=== PATIENT | female | born 1955 | race Caucasian/White ===

== ENCOUNTER → 2016-06-18 | Outpatient (CLI) | payer OTHER ==
--- NOTE | 2016-06-18 17:59 | XR ---
EXAMINATION TYPE: XR hand complete LT DATE OF EXAM: 06/18/2016 5:05 PM COMPARISON: NONE HISTORY: Jammed left thumb TECHNIQUE: 3 views FINDINGS: There is mild spurring at the IP joint of the left thumb. I see no fracture nor dislocation . IMPRESSION: Mild spurring. Otherwise negative exam. No fracture seen.
== END | disposition home or self-care (01) ==
LOC: RADXRMAIN 16:45
PROVIDERS: ATTEND Nurse Practitioner Family
DX: S69.92XA Unspecified injury of left wrist, hand and finger(s), initial encounter (principal); M77.8 Other enthesopathies, not elsewhere classified

== ENCOUNTER → 2016-06-21 | Outpatient (CLI) | payer OTHER ==
--- NOTE | 2016-06-22 07:11 | MM ---
Reason for exam: follow-up at short interval from prior study. Last mammogram was performed 6 months ago. History: Patient is postmenopausal. Physical Findings: Nurse did not find any significant physical abnormalities on exam. MG Diagnostic Mammo LT w CAD CC and MLO view(s) were taken of the left breast. Prior study comparison: December 19, 2015, left breast MG work up mamm w CAD LT. December 14, 2015, bilateral MG screening mammo w CAD. There are scattered fibroglandular densities. There is no discrete abnormality. ASSESSMENT: Negative, BI-RAD 1 RECOMMENDATION: Return to routine screening mammogram schedule for both breasts. Back on schedule.
== END | disposition home or self-care (01) ==
LOC: RADMAMWWP 14:51
PROVIDERS: ATTEND Family Medicine
DX: R92.8 Other abnormal and inconclusive findings on diagnostic imaging of breast (principal)

== ENCOUNTER 2016-10-18 10:41 | Day surgery (SDC) | payer OTHER ==
[2016-10-16 18:08] VITALS: BMI 28.3
[~2016-10-18 10:41] MED LIST: LACTATED RINGERS 1,000 ML IV SCH
[2016-10-18 11:03] VITALS: RESP 16; TEMP 98.7
[2016-10-18] MEDS ORDERED: LIDOCAINE 1% 20 ML VIAL (10MG/ML) FOR IV START INTRADERMA ONE (11:06)
[2016-10-18] MEDS ORDERED: PROPOFOL 10 MG/ML 20 ML VIAL IV ONE (12:17)
--- NOTE | 2016-10-18 12:38 | P.PCN ---
Date of Procedure: 10/18/16 Preoperative Diagnosis: Postoperative Diagnosis: Procedure(s) Performed: PROCEDURE: Colonoscopy. PREOPERATIVE DIAGNOSIS: Screening for history of polyps. POSTOPERATIVE DIAGNOSIS: Sigmoid diverticulosis with no evidence of acute diverticulitis, strictures, polyps or cancer. Preparation: HalfLytely prep. Sedation: Was provided by anesthesia. BRIEF CLINICAL HISTORY: The patient is a 61-year-old female who is scheduled for this evaluation because of history of polyps. She has no bowel complaints of bleeding or anemia. PROCEDURE: With the patient on her left lateral decubitus position and after informed consent and adequate sedation, the perianal area was inspected and did not show any fissures or fistulas. There were no masses felt on digital rectal examination. The Olympus CFQ 160L video colonoscope was then inserted in the rectum in the usual fashion and advanced to the cecum. There were several diverticular orifices seen scattered in the sigmoid but it was no evidence of acute diverticulitis or strictures. No polyps or tumors were seen. I retroflexed the endoscope in the rectum then the endoscope was withdrawn. The patient tolerated the procedure well. PLAN: The patient was reassured. Discussed dietary measures. I suggested repeating this exam in 5 years. She will follow-up with you as planned. Implants: Indications for Procedure: Operative Findings: Description of Procedure:
[2016-10-18 12:56] VITALS: BP 131/79; PULSE 63
== END 2016-10-18 13:12 | disposition home or self-care (01) ==
LOC: ORWHC2ENDO 10:41
DX: Z12.11 Encounter for screening for malignant neoplasm of colon (principal); K57.30 Diverticulosis of large intestine without perforation or abscess without bleeding; Z86.010 Personal history of colon polyps; E78.5 Hyperlipidemia, unspecified; Z79.899 Other long term (current) drug therapy; Z79.82 Long term (current) use of aspirin
CPT/HCPCS: J2704; G0121; 45378

== ENCOUNTER → 2017-06-03 | Outpatient (CLI) | payer OTHER ==
--- NOTE | 2017-06-05 06:53 | MM ---
Reason for exam: screening (asymptomatic). Last mammogram was performed 11 months ago. History: Patient is postmenopausal. Physical Findings: A clinical breast exam by your physician is recommended on an annual basis and results should be correlated with mammographic findings. MG Screening Mammo w CAD Bilateral CC and MLO view(s) were taken. Prior study comparison: June 21, 2016, left breast MG diagnostic mammo LT w CAD. December 19, 2015, left breast MG work up mamm w CAD LT. December 14, 2015, bilateral MG screening mammo w CAD. June 24, 2012, bilateral digital screening mammo w/CAD. There are scattered fibroglandular densities. No suspicious abnormality. No significant changes when compared with prior studies. ASSESSMENT: Negative, BI-RAD 1 RECOMMENDATION: Routine screening mammogram of both breasts in 1 year.
== END | disposition home or self-care (01) ==
LOC: RADMAMWWP 16:44
PROVIDERS: ATTEND Family Medicine
DX: Z12.31 Encounter for screening mammogram for malignant neoplasm of breast (principal)
CPT/HCPCS: 77067

== ENCOUNTER 2017-09-20 10:26 | Emergency (ER) | payer OTHER ==
[2017-09-20] MEDS ORDERED: SODIUM CHLORIDE 0.9% 2,000 ML IV STA (10:53)
--- NOTE | 2017-09-20 10:53 | ED ---
Nausea/Vomiting/Diarrhea HPI - General Chief complaint: Nausea/Vomiting/Diarrhea Stated complaint: Vomiting,dehydration Time Seen by Provider: 09/20/17 10:41 Source: patient Mode of arrival: ambulatory Limitations: no limitations - History of Present Illness Initial comments: Patient states that she is having nausea and vomiting, diarrhea. She also has a bilateral throbbing headache. Her symptoms began yesterday, approximately a day and a half ago. Nothing makes her symptoms better or worse. She went to an urgent care. They felt she was dehydrated and sent her to the emergency department. Patient denies any chest pain, belly pain, back pain. She has no shortness of breath. She feels lightheaded, but has not passed out. She denies any neck pain or stiffness. She has no change in vision or hearing. She denies any recent illnesses or sick contacts. She is unaware of anything unusual that she might have drunk. She has no focal weakness or trouble walking. - Related Data Home Medications Medication Instructions Recorded Confirmed Atorvastatin [Lipitor] 80 mg PO HS 09/20/17 09/20/17 Allergies Allergy/AdvReac Type Severity Reaction Status Date / Time No Known Allergies Allergy Verified 09/20/17 10:34 Review of Systems ROS Statement: Those systems with pertinent positive or pertinent negative responses have been documented in the HPI. ROS Other: All systems not noted in ROS Statement are negative. Past Medical History Past Medical History: Hyperlipidemia Additional Past Medical History / Comment(s): hx colon polyps History of Any Multi-Drug Resistant Organisms: None Reported Past Surgical History: Tonsillectomy Additional Past Surgical History / Comment(s): colonoscopy Past Anesthesia/Blood Transfusion Reactions: No Reported Reaction Past Psychological History: No Psychological Hx Reported Smoking Status: Never smoker - Past Family History Mother Family Medical History: Cancer Sister(s) Family Medical History: Cancer General Exam Limitations: no limitations General appearance: alert, in no apparent distress Head exam: Present: atraumatic, normocephalic, normal inspection Eye exam: Present: normal appearance, PERRL, EOMI. Absent: scleral icterus, conjunctival injection, periorbital swelling ENT exam: Present: normal exam, mucous membranes moist Neck exam: Present: normal inspection. Absent: tenderness, meningismus, lymphadenopathy Respiratory exam: Present: normal lung sounds bilaterally. Absent: respiratory distress, wheezes, rales, rhonchi, stridor Cardiovascular Exam: Present: regular rate, normal rhythm, normal heart sounds. Absent: systolic murmur, diastolic murmur, rubs, gallop, clicks GI/Abdominal exam: Present: soft, normal bowel sounds. Absent: distended, tenderness, guarding, rebound, rigid Extremities exam: Present: normal inspection, full ROM, normal capillary refill. Absent: tenderness, pedal edema, joint swelling, calf tenderness Back exam: Present: normal inspection Neurological exam: Present: alert, oriented X3, CN II-XII intact Psychiatric exam: Present: normal affect, normal mood Skin exam: Present: warm, dry, intact, normal color. Absent: rash Course Vital Signs 09/20/17 09/20/17 09/20/17 10:27 11:19 13:25 Temperature 98.3 F Pulse Rate 69 63 65 Respiratory 17 20 16 Rate Blood Pressure 141/72 143/65 138/81 O2 Sat by Pulse 100 99 99 Oximetry Medical Decision Making - Medical Decision Making I reevaluated the patient. Her symptoms have all completely resolved. She is tolerating orotate. She is feeling better. There are no findings on physical exam. There is no evidence of any acute emergent condition. She is stable for discharge and outpatient follow-up. - Lab Data Result diagrams: 09/20/17 11:15 09/20/17 11:15 Lab Results 09/20/17 09/20/17 09/20/17 Range/Units 11:15 11:15 11:15 WBC 8.8 (3.8-10.6) k/uL RBC 4.85 (3.80-5.40) m/uL Hgb 14.2 (11.4-16.0) gm/dL Hct 42.6 (34.0-46.0) % MCV 87.8 (80.0-100.0) fL MCH 29.3 (25.0-35.0) pg MCHC 33.4 (31.0-37.0) g/dL RDW 12.9 (11.5-15.5) % Plt Count 309 (150-450) k/uL Neutrophils % 69 % Lymphocytes % 24 % Monocytes % 4 % Eosinophils % 2 % Basophils % 0 % Neutrophils # 6.1 (1.3-7.7) k/uL Lymphocytes # 2.1 (1.0-4.8) k/uL Monocytes # 0.4 (0-1.0) k/uL Eosinophils # 0.1 (0-0.7) k/uL Basophils # 0.0 (0-0.2) k/uL Sodium 144 (137-145) mmol/L Potassium 4.0 (3.5-5.1) mmol/L Chloride 104 (98-107) mmol/L Carbon Dioxide 25 (22-30) mmol/L Anion Gap 15 mmol/L BUN 18 H (7-17) mg/dL Creatinine 0.77 (0.52-1.04) mg/dL Est GFR (CKD-EPI)AfAm >90 (>60 ml/min/1.73 sqM) Est GFR (CKD-EPI)NonAf 83 (>60 ml/min/1.73 sqM) Glucose 104 H (74-99) mg/dL Calcium 10.0 (8.4-10.2) mg/dL Magnesium 2.1 (1.6-2.3) mg/dL Total Bilirubin 0.8 (0.2-1.3) mg/dL AST 23 (14-36) U/L ALT 35 (9-52) U/L Alkaline Phosphatase 94 (38-126) U/L Troponin I <0.012 (0.000-0.034) ng/mL Total Protein 7.4 (6.3-8.2) g/dL Albumin 4.7 (3.5-5.0) g/dL Lipase 55 (23-300) U/L Urine Color Urine Appearance (Clear) Urine pH (5.0-8.0) Ur Specific Christoval (1.001-1.035) Urine Protein (Negative) Urine Glucose (UA) (Negative) Urine Ketones (Negative) Urine Blood (Negative) Urine Nitrite (Negative) Urine Bilirubin (Negative) Urine Urobilinogen (<2.0) mg/dL Ur Leukocyte Esterase (Negative) 09/20/17 Range/Units 12:25 WBC (3.8-10.6) k/uL RBC (3.80-5.40) m/uL Hgb (11.4-16.0) gm/dL Hct (34.0-46.0) % MCV (80.0-100.0) fL MCH (25.0-35.0) pg MCHC (31.0-37.0) g/dL RDW (11.5-15.5) % Plt Count (150-450) k/uL Neutrophils % % Lymphocytes % % Monocytes % % Eosinophils % % Basophils % % Neutrophils # (1.3-7.7) k/uL Lymphocytes # (1.0-4.8) k/uL Monocytes # (0-1.0) k/uL Eosinophils # (0-0.7) k/uL Basophils # (0-0.2) k/uL Sodium (137-145) mmol/L Potassium (3.5-5.1) mmol/L Chloride (98-107) mmol/L Carbon Dioxide (22-30) mmol/L Anion Gap mmol/L BUN (7-17) mg/dL Creatinine (0.52-1.04) mg/dL Est GFR (CKD-EPI)AfAm (>60 ml/min/1.73 sqM) Est GFR (CKD-EPI)NonAf (>60 ml/min/1.73 sqM) Glucose (74-99) mg/dL Calcium (8.4-10.2) mg/dL Magnesium (1.6-2.3) mg/dL Total Bilirubin (0.2-1.3) mg/dL AST (14-36) U/L ALT (9-52) U/L Alkaline Phosphatase (38-126) U/L Troponin I (0.000-0.034) ng/mL Total Protein (6.3-8.2) g/dL Albumin (3.5-5.0) g/dL Lipase (23-300) U/L Urine Color Yellow Urine Appearance Clear (Clear) Urine pH 6.0 (5.0-8.0) Ur Specific Christoval 1.020 (1.001-1.035) Urine Protein Trace H (Negative) Urine Glucose (UA) Negative (Negative) Urine Ketones 2+ H (Negative) Urine Blood Negative (Negative) Urine Nitrite Negative (Negative) Urine Bilirubin Negative (Negative) Urine Urobilinogen <2.0 (<2.0) mg/dL Ur Leukocyte Esterase Negative (Negative) 09/20/17 11:12 Twelve-lead EKG shows ventricular rate 58 bpm, normal LA interval and QRS complexes, no ST elevation or depression, interpreted by me as sinus rhythm. Disposition Clinical Impression: Dehydration Disposition: HOME SELF-CARE Condition: Good Instructions: Acute Nausea and Vomiting (ED) Is patient prescribed a controlled substance at d/c from ED?: No Referrals: Kwais Barr DO [Primary Care Provider] - 1-2 days
[2017-09-20] MEDS ORDERED: BUTALB/APAP/CAFF 50-325-40MG TAB PO STA (10:54)
[2017-09-20] MEDS ORDERED: PROCHLORPERAZINE 10 MG TAB PO STA (10:54)
[2017-09-20 11:34] LABS: Basophils % (A) 0 %; Eosinophils # (A) 0.1 k/uL (0-0.7); Eosinophils % (A) 2 %; HCT 42.6 % (34.0-46.0); HGB 14.2 gm/dL (11.4-16.0); Lymphocytes # (A) 2.1 k/uL (1.0-4.8); Lymphocytes % (A) 24 %; MCH 29.3 pg (25.0-35.0); MCHC 33.4 g/dL (31.0-37.0); MCV 87.8 fL (80.0-100.0); Mean Platelet Volume 7.8; Monocytes # (A) 0.4 k/uL (0-1.0); Monocytes % (A) 4 %; Neutrophils # (A) 6.1 k/uL (1.3-7.7); Neutrophils % (A) 69 %; Platelet Count 309 k/uL (150-450); RBC 4.85 m/uL (3.80-5.40); RDW 12.9 % (11.5-15.5); WBC 8.8 k/uL (3.8-10.6)
[2017-09-20 11:45] LABS: ALT 35 U/L (9-52); AST 23 U/L (14-36); Albumin 4.7 g/dL (3.5-5.0); Alkaline Phosphatase 94 U/L (38-126); Anion Gap 15 mmol/L; Blood Urea Nitrogen 18 mg/dL (7-17); Carbon Dioxide 25 mmol/L (22-30); Chloride 104 mmol/L (98-107); Glucose 104 mg/dL (74-99); Lipase 55 U/L (23-300); Magnesium 2.1 mg/dL (1.6-2.3); Sodium 144 mmol/L (137-145); Total Bilirubin 0.8 mg/dL (0.2-1.3); Total Protein 7.4 g/dL (6.3-8.2)
[2017-09-20 12:49] LABS: Appearance,Urine Clear (Clear); Bilirubin,Urine Negative (Negative); Blood,Urine Negative (Negative); Color,Urine Yellow; Glucose,Urine (UA) Negative (Negative); Ketones,Urine 2+ (Negative); Leukocyte Esterase,Urine Negative (Negative); Nitrite,Urine Negative (Negative); Protein,Urine Trace (Negative); Urobilinogen,Urine <2.0 mg/dL (<2.0)
--- NOTE | 2017-09-20 13:24 | CT ---
EXAMINATION TYPE: CT brain wo con DATE OF EXAM: 09/20/2017 COMPARISON: NONE HISTORY: LARSEN, dizziness, nausea and vomiting CT DLP: 978.[address] of the head is obtained. The ventricles, basal cisterns and sulci overlying the conve xities are consistent with the patient's age. The calvarium is intact. No midline shift. Nonspecific low-attenuation within the white matter bilaterally. The seen with edward te microvascular ischemia or demyelinating process. IMPRESSION: 1. No evidence of acute hemorrhage or mass effect. Nonspecific white matter changes bilaterally. If s ymptoms persist or there is continued clinical concern for acute ischemia correlate with MRI.
[2017-09-20 13:25] VITALS: BP 138/81; PULSE 65; RESP 16
[2017-09-20 13:56] VITALS: TEMP 98.4
== END 2017-09-20 13:53 | disposition home or self-care (01) ==
LOC: EC 10:26
DX: E86.0 Dehydration (principal); R11.2 Nausea with vomiting, unspecified; R19.7 Diarrhea, unspecified; R51 Headache; E78.5 Hyperlipidemia, unspecified; Z79.899 Other long term (current) drug therapy
CPT/HCPCS: 36415; 93005; 80053; 83690; 83735; 84484; 85025; 81003; 70450; 99284; 96360; 96361; S0183

== ENCOUNTER → 2017-12-06 | Outpatient (CLI) | payer OTHER ==
--- NOTE | 2017-12-06 12:09 | CT ---
EXAMINATION TYPE: CT pelvis w con DATE OF EXAM: 12/06/2017 COMPARISON: None INDICATION: Pelvic pressure and pain,Low-grade squamous intraepithelial lesion DLP: 719 mGycm, Automated exposure control for dose reduction was used. CONTRAST: 100 mL of Isovue 300. Study performed with Oral Contrast TECHNIQUE: Axial images were obtained from above the iliac crests to the pubic rami in the axial plan e at 5 mm thick sections. Reconstructed images are reviewed on the computer in the coronal plane. FINDINGS: CT PELVIS: No suspicious adenopathy is identified. Loops of bowel within the abdomen and pelvis are normal. Fecal debris is within the colon. Scatte red diverticuli are within the sigmoid colon. There is some mild diffuse wall thickening within the s igmoid. Appendix: Normal as visualized. Urinary bladder: Normal. Some posterior inferior wall thickening is not entirely excluded. Genitourinary structures: Uterus is unremarkable. Adnexal regions are normal. Osseous structures: No suspicious lytic or sclerotic lesions. IMPRESSIONS: 1. There is some mild diffuse wall thickening within the sigmoid colon. Correlate for mild diverticu litis. 2. Some mild inferior posterior urinary bladder wall thickening is not excluded.
== END | disposition home or self-care (01) ==
LOC: RADCTMAIN 07:26
PROVIDERS: ATTEND Family Medicine
DX: R87.612 Low grade squamous intraepithelial lesion on cytologic smear of cervix (LGSIL) (principal)
CPT/HCPCS: 72193; Q9967

== ENCOUNTER 2018-02-12 23:34 | Emergency (ER) | payer OTHER ==
[2018-02-12 23:41] VITALS: TEMP 98.2
--- NOTE | 2018-02-13 00:28 | ED ---
Arrhythmia/Palpitations HPI - General Chief Complaint: Arrhythmia/Palpitations Stated Complaint: Racing heart, arm numbness Time Seen by Provider: 02/13/18 00:17 Source: patient Mode of arrival: ambulatory Limitations: no limitations - History of Present Illness Initial Comments: This patient is 62-year-old woman who presents to be evaluated for a couple of symptoms that came on tonight when she was going to bed. The patient states that when she was lying down she felt tight feeling in the trapezius and neck area on the left. She states that it was a kind of a tight feeling, and that when she would extend her neck it felt like the symptoms would go to her left arm. When she was lying down her heart started racing. When these came on together she felt she should be evaluated here. The patient states that the symptoms have all resolved now. Patient denies diaphoresis, dyspnea, nausea or vomiting, lightheadedness or syncope. She states she has had similar episodes of racing heart in the past, and she also thought she may have a pinched nerve in the neck relating to the neck symptoms. MD Complaint: "heart racing" Onset/Timin -: hour(s) Context: occurred during rest - Related Data Home Medications Medication Instructions Recorded Confirmed Atorvastatin [Lipitor] 80 mg PO HS 09/20/17 09/20/17 Allergies Allergy/AdvReac Type Severity Reaction Status Date / Time No Known Allergies Allergy Verified 02/12/18 23:41 Review of Systems ROS Statement: Those systems with pertinent positive or pertinent negative responses have been documented in the HPI. ROS Other: All systems not noted in ROS Statement are negative. Constitutional: Denies: fever, chills Respiratory: Denies: cough, dyspnea Cardiovascular: Reports: palpitations. Denies: chest pain, dyspnea on exertion , orthopnea, edema, syncope Gastrointestinal: Denies: abdominal pain, nausea, vomiting Genitourinary: Denies: dysuria, hematuria Musculoskeletal: Denies: back pain Skin: Denies: rash Neurological: Denies: headache, weakness, numbness, paresthesias Past Medical History Past Medical History: Hyperlipidemia Additional Past Medical History / Comment(s): hx colon polyps History of Any Multi-Drug Resistant Organisms: None Reported Past Surgical History: Tonsillectomy Additional Past Surgical History / Comment(s): colonoscopy Past Anesthesia/Blood Transfusion Reactions: No Reported Reaction Past Psychological History: No Psychological Hx Reported Smoking Status: Never smoker Past Alcohol Use History: Occasional Past Drug Use History: None Reported - Past Family History Mother Family Medical History: Cancer Sister(s) Family Medical History: Cancer General Exam Limitations: no limitations General appearance: alert, in no apparent distress Head exam: Present: atraumatic, normocephalic Eye exam: Present: normal appearance. Absent: scleral icterus, conjunctival injection ENT exam: Present: normal oropharynx Neck exam: Present: normal inspection, full ROM. Absent: tenderness Respiratory exam: Present: normal lung sounds bilaterally. Absent: respiratory distress, wheezes, rales, rhonchi, stridor Cardiovascular Exam: Present: regular rate, normal rhythm, normal heart sounds. Absent: systolic murmur, diastolic murmur, rubs, gallop GI/Abdominal exam: Present: soft. Absent: distended, tenderness, guarding, rebound, rigid, mass Extremities exam: Present: normal inspection, normal capillary refill. Absent: pedal edema, calf tenderness Back exam: Present: normal inspection, paraspinal tenderness ((Trapezius). Absent: CVA tenderness (R), CVA tenderness (L), vertebral tenderness Neurological exam: Present: alert Skin exam: Present: warm, dry, intact, normal color. Absent: rash Course Vital Signs 02/12/18 23:38 Temperature 98.2 F Pulse Rate 83 Respiratory 18 Rate Blood Pressure 141/82 O2 Sat by Pulse 98 Oximetry EKG Findings - EKG Results: EKG: interpreted by DIPTI, RONIL, sinus rhythm (Rate 66 bpm), normal axis, normal QRS, normal ST/T, no acute changes - CO, Pacemaker, Normal: Normal tracing: normal tracing Medical Decision Making - Lab Data Result diagrams: 02/12/18 23:52 02/12/18 23:52 Lab Results 02/12/18 02/12/18 02/12/18 Range/Units 23:52 23:52 23:52 WBC 10.2 (3.8-10.6) k/uL RBC 4.44 (3.80-5.40) m/uL Hgb 13.5 (11.4-16.0) gm/dL Hct 39.6 (34.0-46.0) % MCV 89.1 (80.0-100.0) fL MCH 30.5 (25.0-35.0) pg MCHC 34.2 (31.0-37.0) g/dL RDW 12.8 (11.5-15.5) % Plt Count 318 (150-450) k/uL Neutrophils % 64 % Lymphocytes % 27 % Monocytes % 4 % Eosinophils % 2 % Basophils % 1 % Neutrophils # 6.6 (1.3-7.7) k/uL Lymphocytes # 2.8 (1.0-4.8) k/uL Monocytes # 0.5 (0-1.0) k/uL Eosinophils # 0.2 (0-0.7) k/uL Basophils # 0.1 (0-0.2) k/uL PT (9.0-12.0) sec INR (<1.2) APTT (22.0-30.0) sec Sodium 140 (137-145) mmol/L Potassium 3.8 (3.5-5.1) mmol/L Chloride 108 H (98-107) mmol/L Carbon Dioxide 21 L (22-30) mmol/L Anion Gap 11 mmol/L BUN 15 (7-17) mg/dL Creatinine 0.66 (0.52-1.04) mg/dL Est GFR (CKD-EPI)AfAm >90 (>60 ml/min/1.73 sqM) Est GFR (CKD-EPI)NonAf >90 (>60 ml/min/1.73 sqM) Glucose 106 H (74-99) mg/dL Calcium 9.8 (8.4-10.2) mg/dL Magnesium 1.9 (1.6-2.3) mg/dL Total Bilirubin 0.5 (0.2-1.3) mg/dL AST 37 H (14-36) U/L ALT 31 (9-52) U/L Alkaline Phosphatase 82 (38-126) U/L Total Creatine Kinase 529 H (30-135) U/L CK-MB (CK-2) 3.9 H (0.0-2.4) ng/mL CK-MB (CK-2) Rel Index 0.7 Troponin I <0.012 (0.000-0.034) ng/mL Total Protein 7.1 (6.3-8.2) g/dL Albumin 4.3 (3.5-5.0) g/dL 02/12/18 Range/Units 23:52 WBC (3.8-10.6) k/uL RBC (3.80-5.40) m/uL Hgb (11.4-16.0) gm/dL Hct (34.0-46.0) % MCV (80.0-100.0) fL MCH (25.0-35.0) pg MCHC (31.0-37.0) g/dL RDW (11.5-15.5) % Plt Count (150-450) k/uL Neutrophils % % Lymphocytes % % Monocytes % % Eosinophils % % Basophils % % Neutrophils # (1.3-7.7) k/uL Lymphocytes # (1.0-4.8) k/uL Monocytes # (0-1.0) k/uL Eosinophils # (0-0.7) k/uL Basophils # (0-0.2) k/uL PT 9.8 (9.0-12.0) sec INR 1.0 (<1.2) APTT 24.2 (22.0-30.0) sec Sodium (137-145) mmol/L Potassium (3.5-5.1) mmol/L Chloride (98-107) mmol/L Carbon Dioxide (22-30) mmol/L Anion Gap mmol/L BUN (7-17) mg/dL Creatinine (0.52-1.04) mg/dL Est GFR (CKD-EPI)AfAm (>60 ml/min/1.73 sqM) Est GFR (CKD-EPI)NonAf (>60 ml/min/1.73 sqM) Glucose (74-99) mg/dL Calcium (8.4-10.2) mg/dL Magnesium (1.6-2.3) mg/dL Total Bilirubin (0.2-1.3) mg/dL AST (14-36) U/L ALT (9-52) U/L Alkaline Phosphatase (38-126) U/L Total Creatine Kinase (30-135) U/L CK-MB (CK-2) (0.0-2.4) ng/mL CK-MB (CK-2) Rel Index Troponin I (0.000-0.034) ng/mL Total Protein (6.3-8.2) g/dL Albumin (3.5-5.0) g/dL Disposition Clinical Impression: Palpitations Disposition: HOME SELF-CARE Condition: Good Instructions: Heart Palpitations (ED) Is patient prescribed a controlled substance at d/c from ED?: No Referrals: Kwasi Barr DO [Primary Care Provider] - 1-2 days
[2018-02-13 00:54] LABS: Basophils # (A) 0.1 k/uL (0-0.2); Basophils % (A) 1 %; Eosinophils # (A) 0.2 k/uL (0-0.7); Eosinophils % (A) 2 %; HCT 39.6 % (34.0-46.0); HGB 13.5 gm/dL (11.4-16.0); Lymphocytes # (A) 2.8 k/uL (1.0-4.8); Lymphocytes % (A) 27 %; MCH 30.5 pg (25.0-35.0); MCHC 34.2 g/dL (31.0-37.0); MCV 89.1 fL (80.0-100.0); Mean Platelet Volume 7.6; Monocytes # (A) 0.5 k/uL (0-1.0); Monocytes % (A) 4 %; Neutrophils # (A) 6.6 k/uL (1.3-7.7); Neutrophils % (A) 64 %; Platelet Count 318 k/uL (150-450); RBC 4.44 m/uL (3.80-5.40); RDW 12.8 % (11.5-15.5); WBC 10.2 k/uL (3.8-10.6)
--- NOTE | 2018-02-13 00:58 | XR ---
EXAMINATION TYPE: XR chest 1V portable DATE OF EXAM: 02/13/2018 COMPARISON: NONE HISTORY: Palpitations tachycardia TECHNIQUE: Single frontal view of the chest is obtained. FINDINGS: Heart and mediastinum are normal. Lungs are clear. Diaphragm is normal. Bony thorax appear s normal. IMPRESSION: Normal chest.
[2018-02-13 01:03] LABS: ALT 31 U/L (9-52); AST 37 U/L (14-36); Albumin 4.3 g/dL (3.5-5.0); Alkaline Phosphatase 82 U/L (38-126); Anion Gap 11 mmol/L; Blood Urea Nitrogen 15 mg/dL (7-17); Calcium 9.8 mg/dL (8.4-10.2); Carbon Dioxide 21 mmol/L (22-30); Chloride 108 mmol/L (98-107); Glucose 106 mg/dL (74-99); Magnesium 1.9 mg/dL (1.6-2.3); Potassium 3.8 mmol/L (3.5-5.1); Sodium 140 mmol/L (137-145); Total Bilirubin 0.5 mg/dL (0.2-1.3); Total Protein 7.1 g/dL (6.3-8.2)
[2018-02-13 01:12] LABS: Partial Thromboplastin Time 24.2 sec (22.0-30.0); Prothrombin Time 9.8 sec (9.0-12.0)
[2018-02-13 01:20] LABS: Creatine Kinase 529 U/L (30-135)
[2018-02-13 01:32] LABS: Creatine Kinase MB 3.9 ng/mL (0.0-2.4); Troponin I <0.012 ng/mL (0.000-0.034)
[2018-02-13 02:29] VITALS: BP 146/77; PULSE 63; RESP 16
== END 2018-02-13 02:29 | disposition home or self-care (01) ==
LOC: EC 23:34
DX: R00.2 Palpitations (principal); R20.0 Anesthesia of skin; E78.5 Hyperlipidemia, unspecified; Z79.899 Other long term (current) drug therapy
CPT/HCPCS: 36415; 71045; 80053; 82550; 82553; 83735; 84484; 85025; 85610; 85730; 93005; 99285

== ENCOUNTER → 2018-06-18 | Outpatient (CLI) | payer OTHER ==
--- NOTE | 2018-06-19 11:01 | MM ---
Reason for exam: screening (asymptomatic). Last mammogram was performed 1 year ago. History: Patient is postmenopausal. Physical Findings: A clinical breast exam by your physician is recommended on an annual basis and results should be correlated with mammographic findings. MG Screening Mammo w CAD Bilateral CC and MLO view(s) were taken. Prior study comparison: June 03, 2017, bilateral MG screening mammo w CAD. June 21, 2016, left breast MG diagnostic mammo LT w CAD. There are scattered fibroglandular densities. No significant changes when compared with prior studies. ASSESSMENT: Benign, BI-RAD 2 RECOMMENDATION: Routine screening mammogram of both breasts in 1 year.
== END | disposition home or self-care (01) ==
LOC: RADMAMWWP 14:59
PROVIDERS: ATTEND Family Medicine
DX: Z12.31 Encounter for screening mammogram for malignant neoplasm of breast (principal)
CPT/HCPCS: 77067

== ENCOUNTER → 2020-07-07 | Outpatient (CLI) | payer OTHER ==
--- NOTE | 2020-07-11 09:49 | MM ---
Reason for exam: screening (asymptomatic). Last mammogram was performed 2 years and 1 month ago. History: Patient is postmenopausal. Physical Findings: A clinical breast exam by your physician is recommended on an annual basis and results should be correlated with mammographic findings. MG Screening Mammo w CAD Bilateral CC, MLO, and XCCL view(s) were taken. Prior study comparison: June 18, 2018, bilateral MG screening mammo w CAD. June 03, 2017, bilateral MG screening mammo w CAD. There are scattered fibroglandular densities. No significant changes when compared with prior studies. ASSESSMENT: Benign, BI-RAD 2 RECOMMENDATION: Routine screening mammogram of both breasts in 1 year.
== END | disposition home or self-care (01) ==
LOC: RADMAMWWP 15:26
PROVIDERS: ATTEND Family Medicine
DX: Z12.31 Encounter for screening mammogram for malignant neoplasm of breast (principal)
CPT/HCPCS: 77067

== ENCOUNTER → 2020-11-28 | Outpatient (CLI) | payer OTHER | END | disposition home or self-care (01) | LOC: LABWHC1 07:30 | PROVIDERS: ATTEND Family Medicine | DX: E87.5 Hyperkalemia (principal) | CPT/HCPCS: 36415; 82024; 82533 ==

== ENCOUNTER → 2021-11-15 | Outpatient (CLI) | payer MEDICARE ==
--- NOTE | 2021-11-16 08:33 | XR ---
Limited cervical spine HISTORY: Radiculopathy 3 views of the cervical spine There is multilevel spondylosis, loss of disc height at intervertebral levels. Cervical vertebral bod ies show anatomic alignment. Bone mineralization is mildly reduced. There are facet arthropathy parr es. Prevertebral soft tissues are normal. Cervical vertebral bodies show preserved height. IMPRESSION: Degenerative disc disease and facet arthropathy.
== END | disposition home or self-care (01) ==
LOC: RADXRMAIN 16:30
PROVIDERS: ATTEND Family Medicine
DX: M50.10 Cervical disc disorder with radiculopathy, unspecified cervical region (principal); M47.22 Other spondylosis with radiculopathy, cervical region
CPT/HCPCS: 72040

== ENCOUNTER 2021-12-08 07:08 | Day surgery (SDC) | payer MEDICARE, OTHER ==
[2021-12-07 08:17] VITALS: BMI 29.0
[~2021-12-08 07:08] MED LIST changes: +LIDOCAINE 1% (10MG/ML) FOR IV START INTRADERMA PRN
[2021-12-08 07:30] VITALS: TEMP 97.2
[2021-12-08] MEDS ORDERED: PROPOFOL 10 MG/ML 20 ML VIAL IV ONE (07:54)
--- NOTE | 2021-12-08 08:11 | P.PCN ---
Date of Procedure: 12/08/21 Procedure(s) Performed: BRIEF HISTORY: Patient is a 66-year-old pleasant White female scheduled for an elective colonoscopy as a part of evaluation of prior history of colon polyps. Her last colonoscopy was 10 years ago. PROCEDURE PERFORMED: Colonoscopy. PREOPERATIVE DIAGNOSIS: History of colon polyps. IV sedation per Anesthesia. PROCEDURE: After informed consent was obtained, the patient, was brought into the endoscopy unit. IV sedation was administered by Anesthesia under continuous monitoring. Digital rectal examination was normal. Initially the Olympus CF-160 flexible video colonoscope was then inserted in the rectum, gradually advanced into the cecum without any difficulty. Careful examination was performed as the scope was gradually being withdrawn. Ileocecal valve and the appendiceal orifice were visualized and appeared normal. Prep was excellent. Mucosa of the cecum, ascending colon, transverse colon, descending colon, sigmoid colon, and rectum appeared normal. Retroflexion was performed in the rectum and no lesions were seen. Scattered sigmoid diverticulosis. The patient tolerated the procedure well. IMPRESSION: Normal-appearing colon from rectum to cecum with no evidence of colorectal neoplasia . Scattered sigmoid diverticulosis. RECOMMENDATIONS: Findings of this examination were discussed with the patient as well as her family. She was advised to have a repeat screening colonoscopy in 10 years from now..
[2021-12-08 08:32] VITALS: BP 127/77; PULSE 62; RESP 16
== END 2021-12-08 08:58 | disposition home or self-care (01) ==
LOC: ORWHC2ENDO 07:08
PROVIDERS: ATTEND Internal Medicine Gastroenterology
DX: Z12.11 Encounter for screening for malignant neoplasm of colon (principal); Z86.010 Personal history of colon polyps; K57.30 Diverticulosis of large intestine without perforation or abscess without bleeding; Z79.1 Long term (current) use of non-steroidal anti-inflammatories (NSAID); Z79.899 Other long term (current) drug therapy; E78.5 Hyperlipidemia, unspecified; K58.9 Irritable bowel syndrome, unspecified; Z98.890 Other specified postprocedural states
CPT/HCPCS: J2704; G0105; 45378

== ENCOUNTER → 2022-08-21 | Outpatient (CLI) | payer MEDICARE ==
--- NOTE | 2022-08-21 21:24 | XR ---
EXAMINATION TYPE: XR Hip Complete LT DATE OF EXAM: 08/21/2022 4:16 PM INDICATION: Patient age:Female; 67 years old; Reason for study: M25.552 M25.512; COMPARISON: CT pelvis 12/06/2017 TECHNIQUE: The left hip was examined in the frontal and lateral projections FINDINGS: No evidence for acute process, joint dislocation or significant soft tissue swelling. Osteo phyte formation of the superior acetabulum of the hips. IMPRESSION: 1. No evidence for acute process. 2. Mild hip osteoarthrosis.
--- NOTE | 2022-08-21 21:25 | XR ---
EXAMINATION TYPE: XR shoulder complete LT DATE OF EXAM: 08/21/2022 4:16 PM INDICATION: Patient age:Female; 67 years old; Reason for study: M25.552 M25.512; COMPARISON: None TECHNIQUE: The left shoulder was examined in AP, internally rotated and scapular Y projections. FINDINGS: No evidence of acute osseous pathology, joint dislocation, or soft tissue swelling. The remaining por tions of the visualized chest are unremarkable. Mild degeneration of the acromion and distal clavicle with osteophyte formation. IMPRESSION: 1. No acute osseous pathology. 2. Mild AC joint osteoarthrosis.
== END | disposition home or self-care (01) ==
LOC: RADXRMAIN 15:58
PROVIDERS: ATTEND Nurse Practitioner Family
DX: M16.12 Unilateral primary osteoarthritis, left hip (principal); M19.012 Primary osteoarthritis, left shoulder
CPT/HCPCS: 73502

== ENCOUNTER → 2022-10-31 | Outpatient (CLI) | payer MEDICARE ==
--- NOTE | 2022-11-01 20:22 | MM ---
Reason for Exam: Screening (asymptomatic). Last mammogram was performed 2 year(s) and 4 month(s) ago. Patient History: Menarche at age 17. First Full-Term at age 26. Postmenopausal. Patient has history of breast feeding. Risk Values: Linsey 5 year model risk: 1.7%. NCI Lifetime model risk: 5.9%. Prior Study Comparison: 06/03/2017 Bilateral Screening Mammogram, [facility]. 06/18/2018 Bilateral Screening Mammogram, [facility]. 07/07/2020 Bilateral Screening Mammogram, [facility]. Tissue Density: There are scattered fibroglandular densities. Findings: Analyzed By CAD. There is no suspicious group of microcalcifications or new suspicious mass in either breast. Overall Assessment: Negative, BI-RAD 1 Management: Screening Mammogram of both breasts in 1 year. . Patient should continue monthly self-breast exams. A clinical breast exam by your physician is recommended on an annual basis. This exam should not preclude additional follow-up of suspicious palpable abnormalities. Note on Linsey scores and lifetime risk: 1. A Linsey score greater than 3% is considered moderate risk. If this is the case, consider specialist referral to assess eligibility for a risk reducing agent. 2. If overall lifetime risk for the development of breast cancer is 20% or higher, the patient may qualify for future screening with alternating mammogram and breast MRI. Electronically signed and approved by: Jamil Munguia M.D. Radiologist
== END | disposition home or self-care (01) ==
LOC: RADMAMWWP 08:20
PROVIDERS: ATTEND Family Medicine
DX: Z12.31 Encounter for screening mammogram for malignant neoplasm of breast (principal); Z78.0 Asymptomatic menopausal state
CPT/HCPCS: 77067

== ENCOUNTER 2022-12-17 02:20 | Emergency (ER) | payer MEDICARE ==
[2022-12-17 02:30] VITALS: TEMP 98.8
[2022-12-17 03:01] VITALS: BP 154/94; PULSE 65; RESP 16
--- NOTE | 2022-12-17 03:09 | ED ---
General Adult HPI - General Chief complaint: Recheck/Abnormal Lab/Rx Stated complaint: High BP, arm and back pain Time Seen by Provider: 12/17/22 02:40 Source: patient, RN notes reviewed Mode of arrival: ambulatory Limitations: no limitations - History of Present Illness Initial comments: 67-year-old female with no significant past medical history presents the emergency department with a chief complaint of left arm pain. She reports that she has sudden onset of left arm pain that awoke her from his symptoms approximately 12:00 this evening. She reports that she has a blood pressure cuff at home and took her blood pressure and was concerned because it is high. She reports that she took aspirin with symptomatic relief of her symptoms. She denies any fever, cough, nausea, vomiting. She denies any injury or trauma. Denies history of hypertension. - Related Data Home Medications Medication Instructions Recorded Confirmed Atorvastatin [Lipitor] 40 mg PO HS 12/07/21 12/07/21 Ibuprofen [Advil] 200 mg PO Q8HR PRN 12/07/21 12/07/21 Allergies Allergy/AdvReac Type Severity Reaction Status Date / Time No Known Allergies Allergy Verified 12/07/21 08:07 Review of Systems ROS Statement: Those systems with pertinent positive or pertinent negative responses have been documented in the HPI. ROS Other: All systems not noted in ROS Statement are negative. Past Medical History Past Medical History: Hyperlipidemia Additional Past Medical History / Comment(s): hx colon polyps History of Any Multi-Drug Resistant Organisms: None Reported Past Surgical History: Tonsillectomy Additional Past Surgical History / Comment(s): colonoscopy Past Anesthesia/Blood Transfusion Reactions: No Reported Reaction Past Psychological History: No Psychological Hx Reported Past Alcohol Use History: Occasional Past Drug Use History: None Reported - Past Family History Mother Family Medical History: Cancer Sister(s) Family Medical History: Cancer General Exam - General Exam Comments Initial Comments: General: Alert, in no acute distress Head: atraumatic normocephalic. Eyes PERRL, EOMI intact, mucous membranes moist Respiratory: Lungs clear to auscultation bilaterally Cardiovascular: Rate regular rate and rhythm Abdominal: Soft without guarding or rebound Extremities: Normal inspection with full range of motion and normal capillary refill Neuroogic: alert and oriented 3, CN II-XII intact, able to ambulate with steady gait Skin: warm dry and intact with normal color Limitations: no limitations Course Vital Signs 12/17/22 12/17/22 02:25 03:01 Temperature 98.8 F Pulse Rate 85 65 Respiratory 18 16 Rate Blood Pressure 157/100 154/94 O2 Sat by Pulse 97 97 Oximetry - Reevaluation(s) Reevaluation #1: 12/17/22 03:02 initial history and physical exam were performed. Patient was seen and evaluated after EKG. Patient reports symptomatic relief status post at home pain medications. Patient verbalized recently discharged from this time. EKG Findings - EKG Comments: EKG Findings:: I interpreted the following: EKG performed at 03:00 rate 70 bpm normal sinus rhythm IN interval 145, QRS duration 91, QT/QTc 399/490 Medical Decision Making - Medical Decision Making Was pt. sent in by a medical professional or institution (KAREN Sandoval, UPSCALE SECURITY OFFICER, urgent care, hospital, or half-way...) When possible be specific @ -[No] Did you speak to anyone other than the patient for history (EMS, parent, family, police, friend...)? What history was obtained from this source @ -[No] Did you review nursing and triage notes (agree or disagree)? Why? @ -[I reviewed and agree with nursing and triage notes] Were old charts reviewed (outside hosp., previous admission, EMS record, old EKG, old radiological studies, urgent care reports/EKG's, half-way records)? Report findings @ -[No old charts were reviewed] Differential Diagnosis (chest pain, altered mental status, abdominal pain women, abdominal pain men, vaginal bleeding, weakness, fever, dyspnea, syncope, headache, dizziness, GI bleed, back pain, seizure, CVA, palpatations, mental health, musculoskeletal)? @ -[not applicable] EKG interpreted by me (3pts min.). @ -[As above] X-rays interpreted by me (1pt min.). @ -[None done] CT interpreted by me (1pt min.). @ -[None done] U/S interpreted by me (1pt. min.). @ -[None done] What testing was considered but not performed or refused? (CT, X-rays, U/S, labs)? Why? @ -[None] What meds were considered but not given or refused? Why? @ -[None] Did you discuss the management of the patient with other professionals (professionals i.e. DrSaumya, PA, UPSCALE SECURITY OFFICER, lab, RT, psych nurse, high school social studies teacher, fish conservationist, teacher, commercial account officer, nurse case management)? Give summary @ -[No] Was smoking cessation discussed for >3mins.? @ -[No] Was critical care preformed (if so, how long)? @ -[No] Were there social determinants of health that impacted care today? How? (Homelessness, low income, unemployed, alcoholism, drug addiction, transportation, low edu. Level, literacy, decrease access to med. care, [facility], rehab)? @ -[No] Was there de-escalation of care discussed even if they declined (Discuss DNR or withdrawal of care, Hospice)? DNR status @ -[No] What co-morbidities impacted this encounter? (DM, HTN, Smoking, COPD, CAD, Cancer, CVA, ARF, Chemo, Hep., AIDS, mental health diagnosis, sleep apnea, morbid obesity)? @ -[None] Was patient admitted / discharged? Hospital course, mention meds given and route, prescriptions, significant lab abnormalities, going to OR and other pertinent info. @ -Discharged. This is a pleasant 67-year-old female who presents the emergency department with left arm pain. Patient had a thorough history and physical the department. Physical exam is essentially unremarkable. Heart rate regular rate and rhythm, lungs are to auscultation bilaterally, abdomen patient was reevaluated after given EKG reports resolution of symptoms after taking her aspirin at home. She verbalizes that she would like to be discharged home. Return precautions were discussed with recommended close follow-up with PCP in 1-2 days. Patient discharged in stable condition all questions and concerns were addressed. Case discussed with SHIVA Rivera who agrees with plan of care Undiagnosed new problem with uncertain prognosis? @ -[No] Drug Therapy requiring intensive monitoring for toxicity (Heparin, Nitro, Insulin, Cardizem)? @ -[No] Were any procedures done? @ -[No] Diagnosis/symptom? @ -Left Arm Pain Acute, or Chronic, or Acute on Chronic? @ -Acute Uncomplicated (without systemic symptoms) or Complicated (systemic symptoms)? @ -[default] Side effects of treatment? @ -[No] Exacerbation, Progression, or Severe Exacerbation? @ -[No] Poses a threat to life or bodily function? How? (Chest pain, [place], [place], pneumonia, PE, COPD, DKA, ARF, appy, cholecystitis, CVA, Diverticulitis, Homicidal, Suicidal, threat to staff... and all critical care pts) @ -Low Likelihood Disposition Clinical Impression: Left arm pain Disposition: HOME SELF-CARE Condition: Stable Additional Instructions: Keep a log of BP and record every morning and night please return to the nearest emergency department if symptoms worsen or persist Is patient prescribed a controlled substance at d/c from ED?: No Referrals: Kwasi Barr DO [Primary Care Provider] - 1-2 days Time of Disposition: 03:08
== END 2022-12-17 03:16 | disposition home or self-care (01) ==
LOC: EC 02:20
DX: M79.602 Pain in left arm (principal); I10 Essential (primary) hypertension; E78.5 Hyperlipidemia, unspecified; Z79.899 Other long term (current) drug therapy
CPT/HCPCS: 93005; 99283

== ENCOUNTER → 2022-12-24 | Outpatient (CLI) | payer MEDICARE ==
--- NOTE | 2022-12-24 10:19 | XR ---
EXAMINATION TYPE: XR chest 2V DATE OF EXAM: 12/24/2022 COMPARISON: NONE HISTORY: Hypertension. TECHNIQUE: Frontal and lateral views of the chest are obtained. FINDINGS: There is no focal air space opacity, pleural effusion, or pneumothorax seen. The cardiac silhouette size is within normal limits. The osseous structures are intact. IMPRESSION: No acute cardiopulmonary process.
== END | disposition home or self-care (01) ==
LOC: RADXRMAIN 09:57
PROVIDERS: ATTEND Family Medicine
DX: I10 Essential (primary) hypertension (principal)
CPT/HCPCS: 71046

== ENCOUNTER → 2023-01-01 | Outpatient (CLI) | payer MEDICARE ==
--- NOTE | 2023-01-09 15:29 | HM ---
HOLTER MONITOR REPORT STUDY PERFORMED: A 24-hour Holter monitor. INDICATION: Rule out cardiac arrhythmia. FINDINGS: The patient was monitored for 24 hours. The baseline rhythm appeared to be sinus mechanism with a minimum heart rate of 47 beats per minute, and max heart rate of 105 beats per minute, and average heart rate of 65 beats per minute. Ventricular ectopic events noted in 0% of the total beats count. Supraventricular ectopic events noted in less than 1% of the total beats count and presented as the PACs and also the patient did have a total of 2 episodes of SVT with the longest of only 3 beats. No significant sinus pause or sinus arrest. No evidence of atrial fibrillation or atrial flutter noted. No evidence of sinus pause or sinus arrest. CONCLUSION: 1. This is a 24-hour Holter monitor. 2. The baseline rhythm appeared to be sinus mechanism. 3. Rare ventricular ectopic events. 4. Rare supraventricular ectopic events. 5. The patient did have 2 short episodes of supraventricular tachycardia noted. 6. No significant sinus pause or sinus arrest. 7. No evidence of atrial fibrillation or atrial flutter. 8. No diary was attached to the study. MMODL / IJN: [id number] /
--- NOTE | 2023-01-10 15:38 | P.EPPROC ---
- EP Procedure Note Electrophysiology Procedure Note: 24-hour Holter monitor shows sinus mechanism heart rates ranging from 47-105 beats a minute average 65 beats a minute No bradycardia arrhythmias 2 short runs of nonsustained atrial tachycardia, brief Occasional PACs and PVCs
== END | disposition home or self-care (01) ==
LOC: RADECHMAIN 12:18
PROVIDERS: ATTEND Family Medicine
DX: I47.1 Supraventricular tachycardia (principal); R00.2 Palpitations
CPT/HCPCS: 93225; 93226

== ENCOUNTER → 2024-01-14 | Outpatient (CLI) | payer MEDICARE ==
--- NOTE | 2024-01-19 12:27 | MM ---
Reason for Exam: Screening (asymptomatic). Last mammogram was performed 1 year(s) and 3 month(s) ago. Patient History: Menarche at age 17. First Full-Term at age 26. Postmenopausal. Patient has history of breast feeding. Risk Values: Linsey 5 year model risk: 1.7%. NCI Lifetime model risk: 5.6%. Prior Study Comparison: 06/18/2018 Bilateral Screening Mammogram, [facility]. 07/07/2020 Bilateral Screening Mammogram, [facility]. 10/31/2022 Bilateral MG screening mammo w CAD, [facility]. Tissue Density: There are scattered areas of fibroglandular density. Findings: Analyzed By CAD. Right breast: There is no suspicious group of microcalcifications or new suspicious mass. Left breast: There is no suspicious group of microcalcifications or new suspicious mass. Overall Assessment: Negative, BI-RAD 1 Management: Screening Mammogram of both breasts in [address] [facility] will attempt to contact patient to return for supplemental views and ultrasound if indicated. Patient should continue monthly self-breast exams. A clinical breast exam by your physician is recommended on an annual basis. This exam should not preclude additional follow-up of suspicious palpable abnormalities. Note on Linsey scores and lifetime risk: 1. A Linsey score greater than 3% is considered moderate risk. If this is the case, consider specialist referral to assess eligibility for a risk reducing agent. 2. If overall lifetime risk for the development of breast cancer is 20% or higher, the patient may qualify for future screening with alternating mammogram and breast MRI. Electronically signed and approved by: Julian Franklin DO
== END | disposition home or self-care (01) ==
LOC: RADMAMWWP 14:30
PROVIDERS: ATTEND Family Medicine
DX: Z12.31 Encounter for screening mammogram for malignant neoplasm of breast
CPT/HCPCS: 77067

== ENCOUNTER 2024-05-21 02:06 | Observation (INO) | payer MEDICARE ==
[2024-05-21] MEDS: SODIUM CHLORIDE 0.9% 1,000 ML IV STA (02:42)
[2024-05-21] MEDS: ASPIRIN 81 MG PO STA (02:43)
--- NOTE | 2024-05-21 03:11 | ED ---
General Adult HPI - General Chief complaint: Chest Pain Stated complaint: Chest tightness Time Seen by Provider: 05/21/24 02:30 Source: patient, RN notes reviewed, old records reviewed Mode of arrival: ambulatory - History of Present Illness Initial comments: Patient is a 69-year-old female presents emergency department complaining of chest pain. Patient states that the chest pain started at approximately 1 AM. She describes it as a tightness across her chest that is nonradiating. States she did have mild nausea with it. Denies any diaphoresis with it. Denies shortness of breath. Lasted minutes and self resolved. She checked her blood pressure and it was elevated at home. States she has had recurrent symptoms of this up to 3-4 times this week. All self resolved. Patient took her home blood pressure medication early when she found that her blood pressure was elevated. She is on propranolol. States she has been asymptomatic since the onset of sym ptoms. Presents for further evaluation at this time. Denies any significant cardiac history. Past medical history includes hypertension and hyperlipidemia. - Related Data Home Medications Medication Instructions Recorded Confirmed Atorvastatin [Lipitor] 40 mg PO HS 12/07/21 12/07/21 Ibuprofen [Advil] 200 mg PO Q8HR PRN 12/07/21 12/07/21 Allergies Allergy/AdvReac Type Severity Reaction Status Date / Time No Known Allergies Allergy Verified 05/21/24 02:16 Review of Systems ROS Statement: Those systems with pertinent positive or pertinent negative responses have been documented in the HPI. Review of Systems: CONST: Denies fever EYES: Denies blurry vision ENT: Denies nasal congestion C/V: Denies Chest pain RESP: Denies shortness of breath GI: Denies abdominal pain : Denies dysuria SKIN: Denies rash. MSK: Denies joint pain. NEURO: Denies headache ROS Other: All systems not noted in ROS Statement are negative. Past Medical History Past Medical History: Hyperlipidemia, Hypertension Additional Past Medical History / Comment(s): hx colon polyps History of Any Multi-Drug Resistant Organisms: None Reported Past Surgical History: Tonsillectomy Additional Past Surgical History / Comment(s): colonoscopy Past Anesthesia/Blood Transfusion Reactions: No Reported Reaction Past Psychological History: No Psychological Hx Reported Past Alcohol Use History: Occasional Past Drug Use History: None Reported - Past Family History Mother Family Medical History: Cancer Sister(s) Family Medical History: Cancer General Exam - General Exam Comments Initial Comments: General: Appears in no acute distress. HEAD: Normal with no signs of head trauma. EYES: EOMI ENT: Hearing grossly intact, normal oropharynx. RESPIRATORY: Clear breath sounds bilaterally. No wheezes, rales, or rhonchi. C/V: Regular rate and rhythm. S1 and S2 auscultated, no edema, peripheral pulses 2+ and intact throughout ABD: Abd is soft, nontender, nondistended EXT: Normal range of motion, no obvious deformity SKIN: No rashes or lesions observed on exposed skin. NEURO: Alert and oriented x 4. Course Vital Signs 05/21/24 05/21/24 05/21/24 02:12 02:22 03:30 Temperature 98.3 F Pulse Rate 67 57 L Pulse Rate [ 62 Lime Kiln Operator ] Respiratory 18 16 Rate Blood Pressure 179/117 140/81 O2 Sat by Pulse 97 97 Oximetry Medical Decision Making - Medical Decision Making Was pt. sent in by a medical professional or institution (, PA, STRUCTURAL RIGGER, urgent care, hospital, or retirement...) When possible be specific @ -No Did you speak to anyone other than the patient for history (EMS, parent, family, police, friend...)? What history was obtained from this source @ -No Did you review nursing and triage notes (agree or disagree)? Why? @ -I reviewed and agree with nursing and triage notes Were old charts reviewed (outside hosp., previous admission, EMS record, old EKG, old radiological studies, urgent care reports/EKG's, retirement records)? Report findings @ -Reviewed old EKG from December 2022. When compared with EKG from today, no obvious acute changes. Appears similar. Differential Diagnosis (chest pain, altered mental status, abdominal pain women, abdominal pain men, vaginal bleeding, weakness, fever, dyspnea, syncope, headache, dizziness, GI bleed, back pain, seizure, CVA, palpatations, mental health, musculoskeletal)? @ -Differential Chest Pain: Stable Angina, Unstable Angina, STEMI, NSTEMI Aortic Dissection, Pneumothorax, Musculoskeletal, Esophageal Spasm GERD, Cholecystitis, Pancreatitis, Zoster, this is not meant to be an all-inclusive list. EKG interpreted by me (3pts min.). @ -As above X-rays interpreted by me (1pt min.). @ -Chest x-ray reveals no obvious acute cardiopulmonary process. CT interpreted by me (1pt min.). @ -None done U/S interpreted by me (1pt. min.). @ -None done What testing was considered but not performed or refused? (CT, X-rays, U/S, labs)? Why? @ -None What meds were considered but not given or refused? Why? @ -None Did you discuss the management of the patient with other professionals (professionals i.e. , PA, STRUCTURAL RIGGER, lab, RT, psych nurse, outreach and education social worker, band builder, teacher, [employer] officer, pillowcase cutter)? Give summary @ -Spoke with KRZYSZTOF Abreu of [facility] who accepted the admission. Was smoking cessation discussed for >3mins.? @ -No Was critical care preformed (if so, how long)? @ -No Were there social determinants of health that impacted care today? How? (Homelessness, low income, unemployed, alcoholism, drug addiction, transportation, low edu. Level, literacy, decrease access to med. care, prison, rehab)? @ -No Was there de-escalation of care discussed even if they declined (Discuss DNR or withdrawal of care, Hospice)? DNR status @ -No What co-morbidities impacted this encounter? (DM, HTN, Smoking, COPD, CAD, Cancer, CVA, ARF, Chemo, Hep., AIDS, mental health diagnosis, sleep apnea, morbid obesity)? @ -Hypertension, hyperlipidemia Was patient admitted / discharged? Hospital course, mention meds given and route, prescriptions, significant lab abnormalities, going to OR and other pertinent info. @ -Patient is a 69-year-old female presents emergency department with chest pain. States it woke her from sleep and this is the third episode this week. Self resolved on its own. Was found to be hypertensive as home as well and she took an extra dose of her blood pressure medication currently is asymptomatic. Patient will be given 324 mg of aspirin and we will obtain a cardiac workup. Patient was in agreement this plan. Vital signs within acceptable limits. EKG shows no signs of acute ischemia. X-ray reveals no obvious acute cardiopulmonary process.Troponin returned undetectable. Remainder the labs unremarkable. On reevaluation, patient's blood pressure is improved. I discussed results with her. She remains asymptomatic. Patient's heart score is moderate at 4. Recommend observation admission for troponin trending and echo and cardiology evaluation. She was in agreement this plan. I spoke with the admitting provider, KRZYSZTOF Abreu of [facility] who accepted the admission. Undiagnosed new problem with uncertain prognosis? @ -No Drug Therapy requiring intensive monitoring for toxicity (Heparin, Nitro, Insulin, Cardizem)? @ -No Were any procedures done? @ -No Diagnosis/symptom? @ -Chest pain Acute, or Chronic, or Acute on Chronic? @ -Acute Uncomplicated (without systemic symptoms) or Complicated (systemic symptoms)? @ -Complicated Side effects of treatment? @ -None Exacerbation, Progression, or Severe Exacerbation] @ -No Poses a threat to life or bodily function? @ -Potentially, yes - Lab Data Result diagrams: 05/21/24 02:36 Lab Results 05/21/24 05/21/24 05/21/24 Range/Units 02:36 02:36 02:36 WBC 9.2 (3.8-10.6) k/uL RBC 4.93 (3.80-5.40) m/uL Hgb 15.0 (11.4-16.0) gm/dL Hct 43.8 (34.0-46.0) % MCV 89.0 (80.0-100.0) fL MCH 30.4 (25.0-35.0) pg MCHC 34.1 (31.0-37.0) g/dL RDW 12.9 (11.5-15.5) % Plt Count 304 (150-450) k/uL MPV 7.9 Neutrophils % 48 % Lymphocytes % 40 % Monocytes % 5 % Eosinophils % 4 % Basophils % 1 % Neutrophils # 4.4 (1.3-7.7) k/uL Lymphocytes # 3.7 (1.0-4.8) k/uL Monocytes # 0.5 (0-1.0) k/uL Eosinophils # 0.3 (0-0.7) k/uL Basophils # 0.1 (0-0.2) k/uL PT 10.0 (10.0-12.5) sec INR 0.9 (<1.2) APTT 25.9 (22.0-30.0) sec Troponin I <0.012 (0.000-0.034) ng/mL - EKG Data -: EKG Interpreted by Me EKG Comments: 12-lead Electrocardiogram Interpretation Note EKG was reviewed and interpreted by myself. 12-lead ECG performed at 0235 is interpreted by me as revealing normal sinus rhythm at a rate of 66 beats per minute. [place] is normal. ME interval is 170 ms, QRS durations 82 ms, QTc is 424 ms.. There were no ST or T wave abnormalities to suggest myocardial ischemia or injury. R wave progression across the precordium was satisfactory. By my interpretation this EKG is non-diagnostic for acute ischemia. Disposition Clinical Impression: Chest pain Disposition: ADMITTED IP TO THIS HOSP Condition: Stable Referrals: Kwasi Barr DO [Primary Care Provider] - 1-2 days Time of Disposition: 03:54
[2024-05-21 03:26] LABS: ALT 29 U/L (4-34); AST 36 U/L (14-36); African American GFR (CKD) >90 (>60 ml/min/1.73 sqM); Albumin 4.9 g/dL (3.5-5.0); Alkaline Phosphatase 91 U/L (38-126); Anion Gap 14 mmol/L; Blood Urea Nitrogen 17 mg/dL (7-17); Calcium 10.1 mg/dL (8.4-10.2); Carbon Dioxide 20 mmol/L (22-30); Chloride 105 mmol/L (98-107); Glucose 136 mg/dL (74-99); Magnesium 2.1 mg/dL (1.6-2.3); Non-African American GFR(CKD) 78 (>60 ml/min/1.73 sqM); Potassium 4.4 mmol/L (3.5-5.1); Sodium 139 mmol/L (137-145); Total Bilirubin 0.7 mg/dL (0.2-1.3); Total Protein 7.9 g/dL (6.3-8.2)
[2024-05-21 03:29] LABS: Basophils # (A) 0.1 k/uL (0-0.2); Basophils % (A) 1 %; Eosinophils # (A) 0.3 k/uL (0-0.7); Eosinophils % (A) 4 %; HCT 43.8 % (34.0-46.0); Lymphocytes # (A) 3.7 k/uL (1.0-4.8); Lymphocytes % (A) 40 %; MCH 30.4 pg (25.0-35.0); MCHC 34.1 g/dL (31.0-37.0); Mean Platelet Volume 7.9; Monocytes # (A) 0.5 k/uL (0-1.0); Monocytes % (A) 5 %; Neutrophils # (A) 4.4 k/uL (1.3-7.7); Neutrophils % (A) 48 %; Platelet Count 304 k/uL (150-450); RBC 4.93 m/uL (3.80-5.40); RDW 12.9 % (11.5-15.5); WBC 9.2 k/uL (3.8-10.6)
[2024-05-21 03:34] LABS: INR 0.9 (<1.2); Partial Thromboplastin Time 25.9 sec (22.0-30.0)
[2024-05-21] MEDS ORDERED: ONDANSETRON 4 MG/2 ML VIAL IVP PRN (03:50)
[2024-05-21] MEDS ORDERED: NALOXONE 0.4 MG/ML 1 ML VIAL IV PRN (03:50)
--- NOTE | 2024-05-21 04:18 | XR ---
EXAM: XR Chest, 2 Views CLINICAL HISTORY: ITS.REASON XR Reason: Chest Pain TECHNIQUE: Frontal and lateral views of the chest. COMPARISON: X-ray dated 12/24/2022 FINDINGS: Lungs: Unremarkable. No consolidation. Pleural space: Unremarkable. No pneumothorax. Heart: Unremarkable. No cardiomegaly. Mediastinum: Unremarkable. Normal mediastinal contour. Bones/joints: Degenerative changes are seen within the spine and shoulders. No acute fracture. IMPRESSION: No acute findings in the chest.
--- NOTE | 2024-05-21 10:44 | P.CRDCN ---
History of Present Illness Consult date: 05/21/24 Consult reason: chest pain History of present illness: This is a 69-year-old female patient of Dr. Belcher with past medical history of hypertension, dyslipidemia, family history of premature coronary artery disease, CAD documented by calcium score CT scan, palpitations. We have been asked to evaluate the patient for chest pain. Patient states that she woke up in the middle of the night and was experiencing chest pain and became hard to breathe. She ended up getting up and checked her blood pressure and it was extremely high. She states this has occurred about 3 times this week but this was the most severe. She has elliptical machine that she walks on every day and has not experienced chest pain. No symptoms at this time. Blood pressure 125/70, heart rate in the 50s. Patient is seen today in the emergency center waiting for bed on the observation unit. -EKG: Sinus rhythm with diffuse ST changes. -Chest x-ray: No acute findings -Laboratory studies: CBC normal. Troponin negative x 3. Sodium 139, potassium 4.4, creatinine 0.78. -Home cardiac medications: Aspirin 81 mg daily, atorvastatin 40 mg at bedtime, Inderal 20 mg at bedtime. -Holter monitor performed 01/01/2023 revealed sinus mechanism 47-105 bpm with average 65 bpm. No bradycardia. 2 short runs of nonsustained atrial tachycardia that were brief. Occasional PACs and PVCs. -Echocardiogram performed in the office 12/30/2022 revealed EF of 55 to 60%, aortic valve is calcified. Mild mitral regurgitation, mild tricuspid regurgitation. -Cardiac calcium score by CT performed 11/08/2020 revealed total of 178, LM 0, LAD 171, left circumflex 7, RCA 0, PDA 0. Review Of Systems: At the time of my exam: CONSTITUTIONAL: Denies fever or chills. HEENT: Denies blurred vision, vision changes, or eye pain. Denies hemoptysis CARDIOVASCULAR: Denies chest pain. Denies orthopnea. Denies PND. Denies palpitations RESPIRATORY: Denies shortness of breath. GASTROINTESTINAL: Denies abdominal pain. Denies nausea or vomiting. HEMATOLOGIC: Denies bleeding disorders. GENITOURINARY: Denies any blood in urine. SKIN: Denies puritis. Denies rash. Physical examination: Gen: This is a 69-year-old female in no acute distress VS: reviewed HEENT: Head is atraumatic, normocephalic. Pupils equal, round. Sclerae is anicteric. NECK: Supple. No JVD. LUNGS: Clear to auscultation. No wheezes or rhonchi. No intercostal retractions. HEART: Regular rate and rhythm. No murmur. ABDOMEN: Soft No tenderness. EXTREMITIES: No pedal edema. No calf tenderness. NEUROLOGICAL: Patient is awake, alert and oriented x3. Assessment: Atypical chest pain, acute coronary syndrome ruled out History of coronary artery disease documented on calcium score CT scan Hypertension Dyslipidemia Family history of premature coronary artery disease Coronary artery disease documented by calcium score CT scan Plan: Resume patient's home cardiac medications Obtain sed rate and CRP Schedule patient for stress echocardiogram today Obtain 2-D echocardiogram and Doppler study to assess cardiac structure and function If testing is unremarkable, patient is cleared for discharge and may follow-up in the office with Dr. Belcher in 1 to 2 weeks. Thank you kindly for this consultation. Nurse practitioner note has been reviewed, I agree with documented findings and plan of care. Patient was seen and examined. Past Medical History Past Medical History: Hyperlipidemia, Hypertension Additional Past Medical History / Comment(s): hx colon polyps History of Any Multi-Drug Resistant Organisms: None Reported Past Surgical History: Tonsillectomy Additional Past Surgical History / Comment(s): colonoscopy Past Anesthesia/Blood Transfusion Reactions: No Reported Reaction Past Psychological History: No Psychological Hx Reported Past Alcohol Use History: Occasional Past Drug Use History: None Reported - Past Family History Mother Family Medical History: Cancer Sister(s) Family Medical History: Cancer Medications and Allergies Home Medications Medication Instructions Recorded Confirmed Type Atorvastatin [Lipitor] 40 mg PO HS 12/07/21 05/21/24 History Aspirin EC [Ecotrin Low Dose] 81 mg PO HS 05/21/24 05/21/24 History Propranolol [Inderal] 20 mg PO HS 05/21/24 05/21/24 History Allergies Allergy/AdvReac Type Severity Reaction Status Date / Time carvedilol [From Coreg] AdvReac dizziness Verified 05/21/24 06:55 metoprolol AdvReac nightmares Verified 05/21/24 06:55 Physical Exam Vitals: Vital Signs Temp Pulse Pulse Resp BP Pulse Ox 05/21/24 09:05 52 L 18 125/70 05/21/24 08:26 51 L 05/21/24 07:24 55 L 18 139/82 95 05/21/24 06:00 55 L 16 160/92 97 05/21/24 03:30 57 L 16 140/81 97 05/21/24 02:22 62 05/21/24 02:12 98.3 F 67 18 179/117 97 Intake and Output 05/20/24 05/21/24 05/21/24 22:59 06:59 14:59 Other: Weight 78.471 kg Results 05/21/24 02:36 05/21/24 02:36 Cardiac Enzymes 05/21/24 05/21/24 05/21/24 Range/Units 02:36 02:36 04:47 AST 36 (14-36) U/L Troponin I <0.012 <0.012 (0.000-0.034) ng/mL Coagulation 05/21/24 Range/Units 02:36 PT 10.0 (10.0-12.5) sec APTT 25.9 (22.0-30.0) sec CBC 05/21/24 Range/Units 02:36 WBC 9.2 (3.8-10.6) k/uL RBC 4.93 (3.80-5.40) m/uL Hgb 15.0 (11.4-16.0) gm/dL Hct 43.8 (34.0-46.0) % Plt Count 304 (150-450) k/uL Comprehensive Metabolic Panel 05/21/24 Range/Units 02:36 Sodium 139 (137-145) mmol/L Potassium 4.4 (3.5-5.1) mmol/L Chloride 105 (98-107) mmol/L Carbon Dioxide 20 L (22-30) mmol/L BUN 17 (7-17) mg/dL Creatinine 0.78 (0.52-1.04) mg/dL Glucose 136 H (74-99) mg/dL Calcium 10.1 (8.4-10.2) mg/dL AST 36 (14-36) U/L ALT 29 (4-34) U/L Alkaline Phosphatase 91 (38-126) U/L Total Protein 7.9 (6.3-8.2) g/dL Albumin 4.9 (3.5-5.0) g/dL Current Medications Generic Name Dose Route Start Last Admin Trade Name Freq PRN Reason Stop Dose Admin Naloxone HCl 0.2 mg 05/21/24 03:50 Naloxone 0.4 Mg/Ml 1 Ml Vial IV Q2M PRN Opioid Reversal Ondansetron HCl 4 mg 05/21/24 03:50 Ondansetron 4 Mg/2 Ml Vial IVP Q8HR PRN Nausea And Vomiting Intake and Output 05/20/24 05/21/24 05/21/24 22:59 06:59 14:59 Other: Weight 78.471 kg 05/21/24 02:36 05/21/24 02:36
--- NOTE | 2024-05-21 12:20 | P.HPIM ---
History of Present Illness H&P Date: 05/21/24 This is a pleasant 69-year-old female with medical history significant for hypertension and hypercholesterol presents to the hospital with complaints of chest tightness. Patient states that she was sleeping and was awoken about 1 AM with an episode of chest tightness and shortness of breath. She states that this has happened 3-4 times over the last week. Denies any associated diaphoresis, dizziness or lightheadedness and symptoms have been resolving on their own. No peripheral edema noted and no chest pain noted. Patient denies any palpitations. No recent febrile illness, no cough. Patient states her blood pressure was elevated 190/100s so she took her propanolol early. Blood pressure improved some but still elevated. Called EMS and came into the hospital. Patient has no other significant cardiac history. Chest xray with on acute findings. EKG shows normal sinus rhythm. Troponin levels are negative x 3, liver enzymes are normal, Renal function normal. CBC normal. Heart rate in the 50s bradycardic. REVIEW OF SYSTEMS: CONSTITUTIONAL: No fever, no malaise, no fatigue. HEENT: No recent visual problems or hearing problems. Denied any sore throat. CARDIOVASCULAR: No chest pain, orthopnea, PND, no palpitations, no syncope. PULMONARY: No shortness of breath, no cough, no hemoptysis. GASTROINTESTINAL: No diarrhea, no nausea, no vomiting, no abdominal pain. NEUROLOGICAL: No headaches, no weakness, no numbness. HEMATOLOGICAL: Denies any bleeding or petechiae. GENITOURINARY: Denies any burning micturition, frequency, or urgency. MUSCULOSKELETAL/RHEUMATOLOGICAL: Denies any joint pain, swelling, or any muscle pain. ENDOCRINE: Denies any polyuria or polydipsia. The rest of the 14-point review of systems is negative. PHYSICAL EXAMINATION: GENERAL: The patient is alert and oriented x3, not in any acute distress. Well developed, well nourished. HEENT: Pupils are round and equally reacting to light. EOMI. No scleral icterus. No conjunctival pallor. Normocephalic, atraumatic. No pharyngeal erythema. No thyromegaly. CARDIOVASCULAR: S1 and S2 present. No murmurs, rubs, or gallops. PULMONARY: Chest is clear to auscultation, no wheezing or crackles. ABDOMEN: Soft, nontender, nondistended, normoactive bowel sounds. No palpable organomegaly. MUSCULOSKELETAL: No joint swelling or deformity. EXTREMITIES: No cyanosis, clubbing, or pedal edema. NEUROLOGICAL: Gross neurological examination did not reveal any focal deficits. SKIN: No rashes. Assessment and plan Pain, atypical rule out coronary syndrome Hypertension Dyslipidemia Obesity GI prophylaxis DVT prophylaxis Full code Plan Patient is currently pending a bed on observation unit patient will be going for a stress echocardiogram today Home medications have been resumed Patient will be started on trial of protonix for GERD The impression and plan of care has been dictated by Kanwal Liu Nurse Practitioner as directed. Dr. Klever MD I have performed a history and physical examination and medical decision making of this patient, discussed the same with the dictator, and agree with the dictators assessment and plan as written, documented as a scribe. Based on total visit time, I have performed more than 50% of this visit. Past Medical History Past Medical History: Hyperlipidemia, Hypertension Additional Past Medical History / Comment(s): hx colon polyps History of Any Multi-Drug Resistant Organisms: None Reported Past Surgical History: Tonsillectomy Additional Past Surgical History / Comment(s): colonoscopy Past Anesthesia/Blood Transfusion Reactions: No Reported Reaction Past Psychological History: No Psychological Hx Reported Past Alcohol Use History: Occasional Past Drug Use History: None Reported - Past Family History Mother Family Medical History: Cancer Sister(s) Family Medical History: Cancer Medications and Allergies Home Medications Medication Instructions Recorded Confirmed Type Atorvastatin [Lipitor] 40 mg PO HS 12/07/21 05/21/24 History Aspirin EC [Ecotrin Low Dose] 81 mg PO HS 05/21/24 05/21/24 History Propranolol [Inderal] 20 mg PO HS 05/21/24 05/21/24 History Allergies Allergy/AdvReac Type Severity Reaction Status Date / Time carvedilol [From Coreg] AdvReac dizziness Verified 05/21/24 06:55 metoprolol AdvReac nightmares Verified 05/21/24 06:55 Physical Exam Vitals: Vital Signs Temp Pulse Pulse Resp BP Pulse Ox 05/21/24 09:05 52 L 18 125/70 05/21/24 08:26 51 L 05/21/24 07:24 55 L 18 139/82 95 05/21/24 06:00 55 L 16 160/92 97 05/21/24 03:30 57 L 16 140/81 97 05/21/24 02:22 62 05/21/24 02:12 98.3 F 67 18 179/117 97 Intake and Output 05/20/24 05/21/24 05/21/24 22:59 06:59 14:59 Other: Weight 78.471 kg Results CBC & Chem 7: 05/21/24 02:36 05/21/24 02:36 Labs: Abnormal Lab Results - Last 24 Hours (Table) 05/21/24 Range/Units 02:36 Carbon Dioxide 20 L (22-30) mmol/L Glucose 136 H (74-99) mg/dL Assessment and Plan Time with Patient: Less than 30
--- NOTE | 2024-05-21 13:45 | CA ---
Stress Echo Report Brianne Stanford Age: 69 Gender: F : 1955 Exam Date: 05/21/2024 12:47 Exam Location: [place] [facility] Ht (in): 63 Wt (lb): 175 Ordering Physician: Nilsa Allison Referring Physician: [id number] Senior Clinical Data Coordinator: APRIL Technologist Procedure CPT: Indication: Chest Pain, Chest pain, unspecified ICD-9 Codes: R079 Rhythm: Patient History: Chest pain and shortness of breath Cardiac Medications: Medications in past 24 hours: Contrast: Stress Results Protocol: Gene Total dose(mL): Exercise Duration (min:sec): 7:[address] Depression (mm): Angina Score: Mendes Score: METS: 8.3 Resting HR: 56 Resting BP: 135 / 74 Peak HR: 128 Peak BP: 186 / 104 Max Predicted HR: 151 85 % Max Predicted HR Target HR: 128 Double Product: [id number] Stress Summary: BP Response: Reason for Termination: Reached target heart rate or work-load, Maximal effort/unable to continue Cardiac Symptoms: ECG Analysis Resting ECG: Normal sinus rhythm Stress ECG: No significant ST-T wave changes that are diagnostic for ischemia Arrhythmia: no sustained arrhythmias noticed during the stress test. No significant ectopic beats noticed Echo Analysis Resting Echo: Normal global and segmental systolic function at rest. No resting regional wall motion abnormality Peak Echo Analysis: Normal augmentation of global and segmental systolic function with stress. No stress-induced regional wall motion abnormality. MEASUREMENTS (Male/Female) Normal Values CONCLUSIONS Fair exercise tolerance for age achieving 8.3 METS Nonischemic ECG and echocardiographic response to treadmill exercise Normal hemodynamic and clinical response to treadmill exercise Overall normal treadmill echo stress test Dr Ramin Kern (Electronically Signed) Final Date: 21 May 2024 13:44
[2024-05-21 15:40] VITALS: PULSE 67; RESP 16
[2024-05-21 15:42] VITALS: BP 161/87
[2024-05-21 15:56] VITALS: TEMP 98.7
[2024-05-21] MEDS ORDERED: ATORVASTATIN 40 MG TAB PO SCH (21:00)
[2024-05-21] MEDS ORDERED: PROPRANOLOL 20 MG TAB PO SCH ×2 (21:00)
[2024-05-22] MEDS ORDERED: PANTOPRAZOLE 40 MG TABLET PO SCH (07:30)
--- NOTE | 2024-05-22 11:23 | CA ---
Transthoracic Echo Report Name: Brianne Stanford Age: 69 Gender: F : 1955 Exam Date: 05/21/2024 13:13 Exam Location: [place] [facility] Ht (in): 63 Wt (lb): 175 Ordering Physician: Driss Mota MD Attending/Referring Phys: Alemite Operator Huong Mello RDCS Procedure CPT: Indications: Chest Pain Cardiac Hx: Technical Quality: Fair Contrast 1: Total Dose (mL): Contrast 2: Total Dose (mL): MEASUREMENTS (Male / Female) Normal Values 2D ECHO LV Diastolic Diameter PLAX 4.3 cm 4.2 - 5.9 / 3.9 - 5.3 cm LV Systolic Diameter PLAX 2.2 cm IVS Diastolic Thickness 1.3 cm 0.6 - 1.0 / 0.6 - 0.9 cm LVPW Diastolic Thickness 1.2 cm 0.6 - 1.0 / 0.6 - 0.9 cm LV Relative Wall Thickness 0.6 RV Internal Dim ED PLAX 2.4 cm LA Systolic Diameter LX 3.6 cm 3.0 - 4.0 / 2.7 - 3.8 cm LV Diastolic Volume MOD BP 39.4 cm??? 67 - 155 / 56 - 104 cm??? LV Systolic Volume MOD BP 12.5 cm??? 22 - 58 / 19 - 49 cm??? LV Ejection Fraction MOD BP 68.2 % >= 55 % LV Cardiac Index MOD BP 943.3 cm???/min???m??? LV Diastolic Volume MOD 4C 42.2 cm??? LV Systolic Volume MOD 4C 13.6 cm??? LV Ejection Fraction MOD 4C 67.7 % LV Cardiac Index MOD 4C 1003.9 cm???/min???m??? LV Diastolic Length 4C 6.9 cm LV Systolic Length 4C 5.7 cm LV Diastolic Volume MOD 2C 33.9 cm??? LV Systolic Volume MOD 2C 11.4 cm??? LV Ejection Fraction MOD 2C 66.4 % LV Cardiac Index MOD 2C 789.6 cm???/min???m??? LV Diastolic Length 2C 6.3 cm LV Systolic Length 2C 5.9 cm LA Volume 43.3 cm??? 18 - 58 / 22 - 52 cm??? LA Volume Index 22.7 cm???/m??? 16 - 28 cm???/m??? M-MODE Aortic Root Diameter MM 2.8 cm LA Systolic Diameter MM 4.2 cm LA Ao Ratio MM 1.5 AV Cusp Separation MM 1.6 cm DOPPLER MV Area PHT 2.6 cm??? Mitral E Point Velocity 81.0 cm/s Mitral A Point Velocity 108.4 cm/s Mitral E to A Ratio 0.7 MV Deceleration Time 296.3 ms TR Peak Velocity 205.0 cm/s TR Peak Gradient 16.8 mmHg FINDINGS Left Ventricle Left ventricular ejection fraction is estimated at 55-60%. Mildly increased septal wall thickness. Mildly increased posterior wall thickness. Normal left ventricular systolic function with no obvious regional wall motion abnormalities. Right Ventricle Normal right ventricular size and function. Right ventricular systolic pressure within normal limits. Right Atrium Normal right atrial size. Left Atrium Normal left atrial size. Mitral Valve Structurally normal mitral valve. Trace mitral regurgitation. No mitral stenosis. Aortic Valve No aortic valve stenosis or regurgitation. Trileaflet aortic valve. Tricuspid Valve Structurally normal tricuspid valve. No tricuspid stenosis. Trace tricuspid regurgitation. Pulmonic Valve Structurally normal pulmonic valve. No pulmonic regurgitation. Trace pulmonic regurgitation. Pericardium No pericardial or pleural effusion. Aorta Normal size aortic root and proximal ascending aorta. CONCLUSIONS LVEF 55% No obvious regional wall motion abnormality Mild concentric LVH No significant valvular dysfunction RVSP estimated in normal range Previewed by: Dr Ramin Kern (Electronically Signed) Final Date: 22 May 2024 11:22
--- NOTE | 2024-05-24 20:38 | P.DS ---
Providers Date of admission: 05/21/24 03:50 Attending physician: Rosy Rawls Consults: 05/21/24 03:50 Consult Physician Routine Consulting Provider: [facility] Consult Reason/Comments: chest pain Do you want consulting provider notified?: Yes Primary care physician: Kwasi Barr Hospital Course: Final Diagnosis Chest Pain, atypical, ACS has been ruled out Hypertension Dyslipidemia Obesity Discharge Disposition Patient is stable for discharge home. Has been cleared by cardiology. Continue all same home medications. Was started on a trial of protonix. Hospital Course This is a pleasant 69-year-old female with medical history significant for hypertension and hypercholesterol presents to the hospital with complaints of chest tightness. Patient states that she was sleeping and was awoken about 1 AM with an episode of chest tightness and shortness of breath. She states that this has happened 3-4 times over the last week. Denies any associated diaphoresis, dizziness or lightheadedness and symptoms have been resolving on their own. No peripheral edema noted and no chest pain noted. Patient denies any palpitations. No recent febrile illness, no cough. Patient states her blood pressure was elevated 190/100s so she took her propanolol early. Blood pressure improved some but still elevated. Called EMS and came into the hospital. Patient has no other significant cardiac history. Chest xray with on acute findings. EKG shows normal sinus rhythm. Troponin levels are negative x 3, liver enzymes are normal, Renal function normal. CBC normal. Heart rate in the 50s bradycardic. Cardiology evaluated the patient. Echocardiogram reveals EF 55-60%. Patient had negative stress echo. Did discuss treating for acid reflux with trial of protonix. Patient is agreeable to this plan. States she does have some component of GERD like symptoms. Advised to see her PCP on discharge. Please see medication reconciliation for a list of current medications. Thank you for allowing us to participate in the care of this patient. The impression and plan of care has been dictated by Kanwal Liu, Nurse Practitioner as directed. Dr. Klever MD I have performed a history and physical examination and medical decision making of this patient, discussed the same with the dictator, and agree with the dictators assessment and plan as written, documented as a scribe. Based on total visit time, I have performed more than 50% of this visit. Patient Condition at Discharge: Stable Plan - Discharge Summary New Discharge Prescriptions: New Pantoprazole [Protonix] 40 mg PO AC-BRKFST #30 tab Continue Propranolol [Inderal] 20 mg PO HS Aspirin EC [Ecotrin Low Dose] 81 mg PO HS Atorvastatin [Lipitor] 40 mg PO HS Discharge Medication List Atorvastatin [Lipitor] 40 mg PO HS 12/07/21 [History] Aspirin EC [Ecotrin Low Dose] 81 mg PO HS 05/21/24 [History] Pantoprazole [Protonix] 40 mg PO AC-BRKFST #30 tab 05/21/24 [Rx] Propranolol [Inderal] 20 mg PO HS 05/21/24 [History] Follow up Appointment(s)/Referral(s): Nicolasa Belcher MD [STAFF PHYSICIAN] - 1 Week Kwasi Barr DO [Primary Care Provider] - 1-2 days Activity/Diet/Wound Care/Special Instructions: Recommend trial of protonix rule out acid reflux Follow up with PCP Discharge Disposition: HOME SELF-CARE
== END 2024-05-21 15:54 | disposition home or self-care (01) ==
LOC: EC 02:06 → 6NMEDSUR 03:50
PROVIDERS: ADMIT Hospitalist; ATTEND Hospitalist
DX: R07.89 Other chest pain (principal); I25.10 Atherosclerotic heart disease of native coronary artery without angina pectoris; I10 Essential (primary) hypertension; E78.00 Pure hypercholesterolemia, unspecified; K21.9 Gastro-esophageal reflux disease without esophagitis; R00.1 Bradycardia, unspecified; E66.9 Obesity, unspecified; Z68.30 Body mass index [BMI] 30.0-30.9, adult; Z79.82 Long term (current) use of aspirin; Z79.899 Other long term (current) drug therapy; Z82.49 Family history of ischemic heart disease and other diseases of the circulatory system
CPT/HCPCS: 96360; 99285; 36415; 93005; 93306; 93351; 80053; 85652; 83735; 84484; 85025; 85610; 85730; 86140; 71046; G0378

== ENCOUNTER → 2024-06-16 | Outpatient (CLI) | payer MEDICARE ==
[2024-06-16 19:37] LABS: ALT 25 U/L (8-44); AST 21 U/L (13-35); Chol/HDL Ratio 3.51 Ratio; LDL Cholesterol,Calculated 99.6 mg/dL (0.0-131.0)
== END | disposition home or self-care (01) ==
LOC: LABWHC1 08:58
PROVIDERS: ATTEND Internal Medicine Interventional Cardiology
DX: E78.2 Mixed hyperlipidemia (principal)
CPT/HCPCS: 36415; 80061; 84450; 84460